=== PATIENT | male | born 1990 | race American Indian/Alaskan Native ===

== ENCOUNTER 2018-03-12 18:26 | Emergency (ER) | payer OTHER ==
--- NOTE | 2018-03-12 20:24 | Emergency Department Report ---
ED ENT HPI - General Chief complaint: Earache Stated complaint: EAR PAIN Time Seen by Provider: 03/12/18 20:23 Source: patient Mode of arrival: Ambulatory Limitations: No Limitations - History of Present Illness Initial comments: Patient complains of right ear pain with a knot behind his ear. Discomfort had been present for 1-2 days, patient has had no pre-existing symptoms, no sore throat, no toothache, no earache, no fever chills or diaphoresis. Patient is HIV positive, diagnosed approximately 7 months ago, currently taking Genvoya daily, and is compliant with his medications. He had repeat visit with his HIV doctor one month ago, report that all labs were stable. Does not take any other medications routinely, has no allergies, does not smoke, but is otherwise in good health. Onset/Timin -: Sudden, days(s) Location: other (right postauricular area) Severity: moderate Severity scale (0 -10): 7 Quality: aching, sharp Consistency: constant Improves with: none Worsens with: none - Related Data Previous Rx's Medication Instructions Recorded Last Taken Type Acetaminophen/Codeine [Tylenol 1 - 2 tab PO Q4HR PRN #20 tablet 03/12/18 Unknown Rx /Codeine # 3 tab] Amoxicillin [Trimox CAP] 500 mg PO Q8H #21 capsule 03/12/18 Unknown Rx Allergies Allergy/AdvReac Type Severity Reaction Status Date / Time No Known Allergies Allergy Unverified 03/12/18 18:29 ED Dental HPI - General Chief complaint: Earache Stated complaint: EAR PAIN Time Seen by Provider: 03/12/18 20:23 Source: patient Mode of arrival: Ambulatory Limitations: No Limitations - Related Data Previous Rx's Medication Instructions Recorded Last Taken Type Acetaminophen/Codeine [Tylenol 1 - 2 tab PO Q4HR PRN #20 tablet 03/12/18 Unknown Rx /Codeine # 3 tab] Amoxicillin [Trimox CAP] 500 mg PO Q8H #21 capsule 03/12/18 Unknown Rx Allergies Allergy/AdvReac Type Severity Reaction Status Date / Time No Known Allergies Allergy Unverified 03/12/18 18:29 ED Review of Systems ROS: Stated complaint: EAR PAIN Other details as noted in HPI Comment: All other systems reviewed and negative Constitutional: denies: chills, fever Eyes: denies: eye pain, eye discharge, vision change ENT: ear pain (right retroauricular). denies: throat pain, dental pain, epistaxis, congestion Respiratory: denies: cough, shortness of breath, wheezing Cardiovascular: denies: chest pain, palpitations Endocrine: no symptoms reported Skin: denies: rash, lesions Neurological: denies: headache, weakness, paresthesias Psychiatric: denies: anxiety, depression ED Past Medical Hx - Past Medical History Previous Medical History?: No Additional medical history: HIV positive, stable examination, does not note CD4 count, currently taking medications - Surgical History Past Surgical History?: No - Social History Smoking Status: Never Smoker Substance Use Type: None - Medications Home Medications: Home Medications Medication Instructions Recorded Confirmed Last Taken Type Acetaminophen/Codeine [Tylenol 1 - 2 tab PO Q4HR PRN #20 tablet 03/12/18 Unknown Rx /Codeine # 3 tab] Amoxicillin [Trimox CAP] 500 mg PO Q8H #21 capsule 03/12/18 Unknown Rx ED Physical Exam - General Limitations: No Limitations General appearance: in no apparent distress - Head Head exam: Present: atraumatic, normocephalic - ENT ENT exam: Present: normal orophraynx, mucous membranes dry, TM's normal bilaterally, other (right retroauricular cervical adenitis, tender to touch, no abscess,) - Neck Neck exam: Present: other (right retroauricular adenitis, localized, no other adenopathy identified to face or neck, on either side) - Respiratory Respiratory exam: Present: normal lung sounds bilaterally. Absent: respiratory distress - Cardiovascular Cardiovascular Exam: Present: regular rate, normal rhythm. Absent: systolic murmur, diastolic murmur, rubs, gallop - GI/Abdominal GI/Abdominal exam: Present: soft, normal bowel sounds - Extremities Exam Extremities exam: Present: normal inspection - Psychiatric Psychiatric exam: Present: normal affect, normal mood - Skin Skin exam: Present: warm, dry, intact, normal color. Absent: rash ED Course Vital Signs 03/12/18 03/12/18 18:29 20:49 Temperature 98.1 F Pulse Rate 75 Respiratory 18 20 Rate Blood Pressure 153/102 O2 Sat by Pulse 100 100 Oximetry ED Medical Decision Making - Medical Decision Making Patient has isolated right postauricular cervical adenitis, but no fever, vital signs are stable, and is asymptomatic otherwise. Most likely etiology for this is viral, and although patient is HIV positive, he was only recently diagnosed, is currently taking appropriate medication, and was stable at visit 1 month ago. There is no suspicion for any significant HIV related complication, patient will be treated with Anaprox empirically for 1 week with one-week follow -up. Critical Care Time: No Critical care attestation.: If time is entered above; I have spent that time in minutes in the direct care of this critically ill patient, excluding procedure time. ED Disposition Clinical Impression: Acute cervical adenitis, HIV positive Disposition: DC- TO HOME OR SELFCARE Is pt being admited?: No Does the pt Need Aspirin: No Condition: Stable Instructions: Adenitis (ED) Prescriptions: Acetaminophen/Codeine [Tylenol /Codeine # 3 tab] 1 - 2 tab PO Q4HR PRN #20 tablet PRN Reason: Pain Amoxicillin [Trimox CAP] 500 mg PO Q8H #21 capsule Referrals: PRIMARY CARE, [Primary Care Provider] - 3-5 Days Time of Disposition: 21:20
[2018-03-12 22:03] VITALS: BP 149/98
== END 2018-03-12 22:08 | disposition home or self-care (01) ==
LOC: ED 18:26
DX: L04.0 Acute lymphadenitis of face, head and neck (principal)
CPT/HCPCS: 99282